=== PATIENT | female | born 1955 | race Caucasian/White ===

== ENCOUNTER 2018-02-22 13:20 | Emergency (ER) | payer OTHER ==
[2018-02-22 13:24] VITALS: BP 141/35; PULSE 76; TEMP 98.2; BMI 27.4
[2018-02-22] MEDS ORDERED: KETOROLAC TROMETHAMINE 60 MG/2 ML VIAL IM ONE (13:56)
--- NOTE | 2018-02-22 14:05 | PDOC ---
History of Present Illness - General Chief Complaint: Back Pain Stated Complaint: LOW BACK PAIN Time Seen by Provider: 02/22/18 13:47 History Source: Patient Exam Limitations: Clinical Condition - History of Present Illness Initial Comments: 02/22/18 14:00 Patient with no sig Past medical history present with complain of severe right lower back pain after heavy lifting 4 days ago. Patient reported she has been taking home tramadol and ibuprofen which was given to her by her PCP for knee pain for back pain symptoms which is not improving. Patient reports severe pain to lower back with movement and crying hysterically with pain. Denies history of back injuries Timing/Duration: other (4 days) Severity: severe Past History - Past Medical History Allergies/Adverse Reactions: Allergies Allergy/AdvReac Type Severity Reaction Status Date / Time No Known Allergies Allergy Verified 02/22/18 13:25 Home Medications: Ambulatory Orders Back Brace [Ultra Support] 1 each MC DAILY #1 each 02/22/18 Ibuprofen [Motrin -] 600 mg PO TID 02/22/18 Lidocaine 5% Patch [Lidoderm -] 1 patch TP DAILY #30 patch 02/22/18 Methocarbamol [Robaxin -] 750 mg PO Q8H PRN #20 tablet 02/22/18 Naproxen [Naprosyn] 500 mg PO BID PRN #20 tablet 02/22/18 Tramadol HCl [Ultram] 50 mg PO ASDIR 02/22/18 - Suicide/Smoking/Psychosocial Hx Smoking History: Never smoked Have you smoked in the past 12 months: No Information on smoking cessation initiated: No Hx Alcohol Use: No Drug/Substance Use Hx: No Review of Systems - Review of Systems Able to Perform ROS?: Yes Is the patient limited Malay proficient: No Constitutional: No: Chills, Diaphoresis, Fever, Loss of Appetite, Malaise, Night Sweats, Weakness, Weight Stable, Unintentional Wgt. Loss, Unexplained wgt Loss, Other HEENTM: No: Eye Pain, Blurred Vision, Tearing, Recent change in vision, Double Vision, Cataracts, Ear Pain, Ocular Prothesis, Ear Discharge, Nose Pain, Nose Congestion, Tinnitus, Nose Bleeding, Hearing Loss, Throat Pain, Throat Swelling , Mouth Pain, Dental Problems, Difficulty Swallowing, Mouth Swelling, Other Respiratory: No: Cough, Orthopnea, Shortness of Breath, SOB with Exertion, SOB at Rest, Stridor, Wheezing, Productive cough, Hemoptysis, Other Cardiac (ROS): No: Chest Pain, Edema, Irregular Heart Rate, Lightheadedness, Palpitations, Syncope, Chest Tightness, Other ABD/GI: No: Abdominal Distended, Abd. Pain w/ defecation, Blood Streaked Bowels , Constipated, Diarrhea, Difficulty Swallowing, Nausea, Poor Appetite, Poor Fluid Intake, Rectal Bleeding, Vomiting, Indigestion, Abdominal cramping, Tarry Stools, Other Musculoskeletal: Yes: See HPI, Back Pain (right lower back), Muscle Pain (lower back). No: Muscle Weakness All Other Systems: Reviewed and Negative *Physical Exam - Vital Signs Last Vital Signs Temp Pulse Resp BP Pulse Ox 98.2 F 76 16 141/35 100 02/22/18 13:22 02/22/18 13:22 02/22/18 13:22 02/22/18 13:22 02/22/18 13:22 - Physical Exam Comments: 02/22/18 14:03 GENERAL: Well developed, well nourished. Awake and alert. No acute distress. HEENT: Normocephalic, atraumatic. PERRLA, EOMI. No conjunctival pallor. Sclera are non- icteric. Moist mucous membranes. Oropharynx is clear. NECK: Supple. Full ROM. No JVD. Carotid pulses 2+ and symmetric, without bruits. No thyromegaly. No lymphadenopathy. CARDIOVASCULAR: Regular rate and rhythm. No murmurs, rubs, or gallops. Distal pulses are 2+ and symmetric. PULMONARY: No evidence of respiratory distress. Lungs clear to auscultation bilaterally. No wheezing, rales or rhonchi. ABDOMINAL: Soft. Non-tender. Non-distended. No rebound or guarding. No organomegaly. Normoactive bowel sounds. MUSCULOSKELETAL : Severe tenderness over right paravertebral muscle of L4-S1 which is worse with external rotation of hip. No bony deformities or tenderness. No CVA tenderness. EXTREMITIES: No cyanosis. No clubbing. No edema. No calf tenderness. SKIN: Warm and dry. Normal capillary refill. No rashes. No jaundice. NEUROLOGICAL: Alert, awake, appropriate. Cranial nerves 2-12 intact. No deficits to light touch and temperature in face, upper extremities and lower extremities. No motor deficits in the in face, upper extremities and lower extremities. Normoreflexic in the upper and lower extremities. Normal speech. Toes are down- going bilaterally. Gait is normal without ataxia. PSYCHIATRIC: Cooperative. Good eye contact. Appropriate mood and affect. General Appearance: Yes: Nourished, Appropriately Dressed, Moderate Distress ED Treatment Course - RADIOLOGY Radiology Studies Ordered: Category Date Time Status SPINE-LUMBAR SACRAL [RAD] Stat Radiology 02/22/18 13:57 Ordered Medical Decision Making - Medical Decision Making 02/22/18 14:05 Patient with no sig Past medical history presenting with complain of severe right lower back pain for 4 days status post heavy lifting. Patient has been self-medicating with tramadol narcotic and ibuprofen which reports not helping with symptoms. Toradol 60 mg IM given for pain. X-ray of lower lumbosacral ordered for acute pathology or dislocation. Treat based on imaging results 02/22/18 14:52 x-ray of lumbgosacral shows no acute pathology. pt stable for home discharge on NSAIDS and muscle relaxer with ortho follow-up *DC/Admit/Observation/Transfer Diagnosis at time of Disposition: Back muscle spasm Lumbago Qualifiers: Chronicity: acute Back pain laterality: right Sciatica presence: without sciatica Qualified Code(s): M54.5 - Low back pain - Discharge Dispostion Disposition: HOME Condition at time of disposition: Stable Decision to Admit order: No - Prescriptions Prescriptions: Back Brace [Ultra Support] 1 each MC DAILY #1 each Lidocaine 5% Patch [Lidoderm -] 1 patch TP DAILY #30 patch Methocarbamol [Robaxin -] 750 mg PO Q8H PRN #20 tablet PRN Reason: Back Pain Naproxen [Naprosyn] 500 mg PO BID PRN #20 tablet PRN Reason: Back Pain - Referrals Referrals: Joni Ochoa MD [Primary Care Provider] - Jn Guerrero MD [Staff Physician] - - Patient Instructions Printed Discharge Instructions: Low Back Pain Additional Instructions: Take prescribed medication as needed for pain. Use back brace daily until symptoms resolved. Follow-up will referred orthopedics if no improvement in 5 days - Post Discharge Activity
[2018-02-22] MEDS ORDERED: KETOROLAC TROMETHAMINE 60 MG/2 ML VIAL ONE (14:07)
== END 2018-02-22 15:08 | disposition home or self-care (01) ==
LOC: JERFT 13:20
PROC: 3E0233Z Introduction of Anti-inflammatory into Muscle, Percutaneous Approach (ICD-10-PCS; principal; 2018-02-22)
DX: M62.830 Muscle spasm of back (principal); M54.5 Low back pain; X50.0XXA Overexertion from strenuous movement or load, initial encounter; Y93.89 Activity, other specified; Y92.89 Other specified places as the place of occurrence of the external cause; Y99.8 Other external cause status
CPT/HCPCS: 72100-TC-FY; 96372; 99281-25